=== PATIENT | male | born 1945 | race Hispanic/Latino ===

== ENCOUNTER 2017-08-15 09:47 | Day surgery (SDC) | payer MEDICARE ==
[2017-08-14 08:41] VITALS: BMI 31.1
[2017-08-15 10:31] LABS: BASO % 0.4 % (0.0-2.0); EOS # 0.1 K/uL (0.0-0.7); EOS % 1.9 % (0.0-4.0); LYMPH # 0.8 K/uL (1.0-4.3); LYMPH % 15.3 % (20.0-40.0); MEAN CORPUSCULAR HEMOGLOBIN 30.6 pg (27.0-31.0); MEAN CORPUSCULAR HGB CONC 33.2 g/dL (33.0-37.0); MEAN PLATELET VOLUME 7.9 fL (7.2-11.7); MONO # 0.5 K/uL (0.0-0.8); MONO % 10.8 % (0.0-10.0); RED CELL DISTRIBUTION WIDTH 15.1 % (11.5-14.5)
[2017-08-15 10:39] LABS: CHLORIDE 105 mmol/L (98-107); POTASSIUM 4.4 mmol/L (3.6-5.2); SODIUM 142 mmol/L (132-148)
[2017-08-15 10:42] LABS: BLOOD UREA NITROGEN 20 mg/dL (9-20); CARBON DIOXIDE 25 mmol/L (22-30); GFR AFRICAN-AMERICAN > 60
[2017-08-15 10:43] LABS: CALCIUM 8.9 mg/dl (8.6-10.4); GLUCOSE,RANDOM 85 mg/dL (75-110)
[2017-08-15 10:55] VITALS: PULSE 76; RESP 18
[2017-08-15 12:42] VITALS: BP 150/88; O2SAT 100
[2017-08-15 12:46] VITALS: TEMP 97.3
--- NOTE | 2017-08-15 14:33 | RAD ---
PROCEDURE: CHEST RADIOGRAPH, 1 VIEW HISTORY: post thoracentesis COMPARISON: CT chest without contrast from 03/20/2017 FINDINGS: LUNGS: The right lung is well inflated. No focal consolidation. PLEURA: There is a moderate left pleural effusion. No pneumothorax. CARDIOVASCULAR: Normal. OSSEOUS STRUCTURES: No significant abnormalities. VISUALIZED UPPER ABDOMEN: Normal. OTHER FINDINGS: None. IMPRESSION: Moderate left pleural effusion. Underlying atelectasis/ consolidation/mass cannot be excluded.
--- NOTE | 2017-08-16 05:53 | PROCN ---
PROCEDURE: Thoracentesis. REASON: Large left pleural effusion. DESCRIPTION OF PROCEDURE: After obtaining consent from patient, explaining risks and benefits, thoracentesis procedure was done after the chest was marked by the ultrasound. Procedure was done under local anesthesia, sterile conditions, 2 liters of straw and dark colored fluid removed. The patient tolerated the procedure well. No complications. Chest x-ray ordered. Pete Anderson MD
--- NOTE | 2017-08-16 08:52 | US ---
Limited right macarena thorax ultrasound History: Pleural effusion. Comparison: X-ray dated 12/12/2016 Technique: Limited ultrasound through the right macarena thorax. Findings: Left pleural effusion was marked for thoracentesis to be performed by Dr. Anderson. Impression: Left pleural effusion was marked for thoracentesis to be performed by Dr. Anderson.
== END 2017-08-15 15:02 | disposition home or self-care (01) ==
LOC: C.SPRAD 09:47
PROVIDERS: ATTEND Internal Medicine Critical Care Medicine
DX: J90 Pleural effusion, not elsewhere classified (principal)

== ENCOUNTER 2017-12-31 10:38 | Day surgery (SDC) | payer MEDICARE ==
[2017-12-31 11:28] VITALS: BMI 30.1
[2017-12-31 12:10] LABS: BASO % 0.6 % (0.0-2.0); EOS # 0.1 K/uL (0.0-0.7); EOS % 1.2 % (0.0-4.0); HEMOGLOBIN 13.4 g/dL (12.0-18.0); INR 0.9; LYMPH # 1.4 K/uL (1.0-4.3); LYMPH % 22.6 % (20.0-40.0); MEAN CELL VOLUME 86.9 fL (80.0-94.0); MEAN CORPUSCULAR HEMOGLOBIN 29.5 pg (27.0-31.0); MEAN CORPUSCULAR HGB CONC 33.9 g/dL (33.0-37.0); MEAN PLATELET VOLUME 8.5 fL (7.2-11.7); MONO # 0.6 K/uL (0.0-0.8); MONO % 9.1 % (0.0-10.0); NEUT # 4.3 K/uL (1.8-7.0); NEUT % 66.5 % (50.0-75.0); NRBC % 0.1 % (0.0-2.0); PROTHROMBIN TIME 10.5 SECONDS (9.7-12.2); RBC 4.55 Mil/uL (4.40-5.90); RED CELL DISTRIBUTION WIDTH 15.3 % (11.5-14.5); WHITE BLOOD COUNT 6.4 K/uL (4.8-10.8)
[2017-12-31 12:13] LABS: BLOOD UREA NITROGEN 30 mg/dL (9-20); CALCIUM 9.2 mg/dl (8.6-10.4); GFR AFRICAN-AMERICAN > 60; GFR NON-AFRICAN AMERICAN 54
--- NOTE | 2017-12-31 14:19 | CP.SDSHP ---
Same Day Surgery H & P - History Proposed Procedure: US guided left thoracentesis Pre-Op Diagnosis: Left pleural effusion - Allergies Allergies: Allergies Penicillins Allergy (Mild, Verified 12/12/16 08:03) RASH - Physical Exam Vital Signs: Vital Signs 12/31/17 11:55 Temperature 97.4 F L Pulse Rate 91 H Respiratory 20 Rate Blood Pressure 143/40 L O2 Sat by Pulse 95 Oximetry Mental Status: Alert & Oriented x3 - Impression Impression: Pt with left pleural effusion and shortness of breath. Plan US guided thoracentesis. Pt. Evaluated Today:Candidate for Anesthesia & Procedure: No - Date & Time Date: 12/31/17 Time: 14:10 Short Stay Discharge - Short Stay Discharge Admitting Diagnosis/Reason for Visit: THORACENTESIS Disposition: HOME/ ROUTINE
--- NOTE | 2017-12-31 14:22 | PCM.SURG1 ---
Surgeon's Initial Post Op Note - Surgeon's Notes Surgeon: Keven Mai MD Wafer Slicer: NONE Type of Anesthesia: Local Pre-Operative Diagnosis: Left pleural effusion Operative Findings: US showed large left pleural effusion Post-Operative Diagnosis: Left pleural effusion Operation Performed: US guided left thoracentesis. Specimen/Specimens Removed: 2500 cc of straw colored fluid Estimated Blood Loss: EBL {In ML}: 0 Blood Products Given: N/A Drains Used: No Drains Post-Op Condition: Fair Date of Surgery/Procedure: 12/31/17 Time of Surgery/Procedure: 14:15
--- NOTE | 2017-12-31 14:31 | US ---
PROCEDURE: Date of procedure: 12/31/2017 Procedure: 1. Ultrasound-guided left thoracentesis, CPT 26064 Medications: 6cc 1% Lidocaine HISTORY: Left pleural effusion, shortness of breath TECHNIQUE: Following informed consent ,the Patients' left chest was marked. Procedure time-out was called, and the patient was placed in the sitting position and limited ultrasound showed a large left effusion. The patient's left back was prepped and draped in the usual sterile fashion. After the skin was anesthetized with lidocaine, a drainage catheter was advanced under ultrasound guidance into the pleural space. Ultrasound-guided thoracentesis was performed. A total of 2500 cubic centimeters of straw-colored fluid removed without complication. A Xeroform dressing was applied. IMPRESSION: Ultrasound guided left thoracentesis. There were no immediate complications.
[2017-12-31 15:12] VITALS: BP 130/93; PULSE 77; RESP 18; TEMP 98; O2SAT 99
--- NOTE | 2017-12-31 15:54 | RAD ---
HISTORY: Status post left thoracentesis. COMPARISON: Chest x-ray performed 10/11/17 TECHNIQUE: Chest, one view. FINDINGS: Examination limited by habitus. LUNGS: Small left pleural effusion and associated consolidation. No definite pneumothorax. Mild biapical pleural thickening. Please note that chest x-ray has limited sensitivity for the detection of pulmonary masses. CARDIOVASCULAR: Stable. OSSEOUS STRUCTURES: Degenerative changes. VISUALIZED UPPER ABDOMEN: Unremarkable. OTHER FINDINGS: None. IMPRESSION: Small left pleural effusion and associated consolidation. Mild biapical pleural thickening.
== END 2017-12-31 15:23 | disposition home or self-care (01) ==
LOC: C.SDS 10:38
PROVIDERS: ATTEND Radiology Vascular & Interventional Radiology
DX: J90 Pleural effusion, not elsewhere classified (principal); Z88.0 Allergy status to penicillin